=== PATIENT | male | born 1990 | race Caucasian/White ===

== ENCOUNTER 2018-09-13 17:40 | Emergency (ER) | payer MEDICAID ==
[2018-09-13 18:00] VITALS: BP 162/110
--- NOTE | 2018-09-13 19:16 | EDM.PDOC ---
ED HPI GENERAL MEDICAL PROBLEM - General Chief Complaint: Gastrointestinal Problem Stated Complaint: RECTAL BLEEDING Time Seen by Provider: 09/13/18 17:55 Source of Information: Reports: Patient History Limitations: Reports: No Limitations - History of Present Illness INITIAL COMMENTS - FREE TEXT/NARRATIVE: pt arrived stating that he has intermitent rectal bleeding. He had a fair amount of bleeding last nite but he is not bleeding today. He has a history of viomiting when he wakes up each day. He is not having severe pain in his abdoman. Pt states he does drink every day and usually has about 7 drinks daily. Onset: Gradual, Other ( This has been going on for awhile on and off. He did not go to work today. ) Duration: Hour(s): Location: Reports: Abdomen, Other (pt gives a history of very carious teeth. ) Associated Symptoms: Reports: Nausea/Vomiting, Other ( rectal bleeding. ) Right Abdominal Pain Score (Numeric/FACES): 6 - Related Data Allergies Allergy/AdvReac Type Severity Reaction Status Date / Time No Known Allergies Allergy Verified 09/13/18 18:05 Home Meds: Home Meds NK [No Known Home Meds] 04/30/15 [History] Past Medical History Other Cardiovascular History: tachycardia Other Respiratory History: pt feels wheezy at times and so he uses his girlfriends inhaler and pt feels it helps. Gastrointestinal History: Reports: Hemorrhoids, Other (See Below) Other Gastrointestinal History: internal hemorrhoids Neurological History: Reports: Migraines Psychiatric History: Reports: Addiction - Past Surgical History HEENT Surgical History: Reports: Other (See Below) Other HEENT Surgeries/Procedures: drained tonsils after tonscillitis. Social & Family History - Tobacco Use Smoking Status *Q: Light Tobacco Smoker Years of Tobacco use: 10 Packs/Tins Daily: 0.5 - Caffeine Use Caffeine Use: Reports: Energy Drinks Other Caffeine Use: 5 per day - Alcohol Use Days Per Week of Alcohol Use: 7 Number of Drinks Per Day: 10 Total Drinks Per Week: 70 - Recreational Drug Use Recreational Drug Use: Yes Recreational Drug Type: Reports: Marijuana/Hashish Recreational Drug Use Frequency: Weekly ED ROS GENERAL - Review of Systems Review Of Systems: See Below Constitutional: Reports: No Symptoms HEENT: Reports: Other (pt has multiple carrious teeth) Respiratory: Reports: No Symptoms Cardiovascular: Reports: No Symptoms Endocrine: Reports: No Symptoms GI/Abdominal: Reports: Black Stool, Bloody Stool, Other ( blood when he wipwes, This was last nite, none today. ) : Reports: No Symptoms Musculoskeletal: Reports: No Symptoms Skin: Reports: No Symptoms Neurological: Reports: No Symptoms Psychiatric: Reports: No Symptoms Hematologic/Lymphatic: Reports: No Symptoms ED EXAM, GI/ABD - Physical Exam Exam: See Below Text/Narrative:: pt arrived with a history of some black tarry stools for 1 day, He had bright red blood when he wiped his rectum last nite. He has some pain in the rt upper abdoman. He does drink on a regular basis. He does vomit each am. Exam Limited By: No Limitations General Appearance: Alert, No Apparent Distress Ears: Normal TMs Nose: Normal Inspection Throat/Mouth: Normal Inspection Head: Atraumatic Neck: Normal Inspection Respiratory/Chest: No Respiratory Distress Cardiovascular: Regular Rate, Rhythm GI/Abdominal Exam: Other (pt does not have sig tenderness present. ) (Male) Exam: Deferred Rectal (Males) Exam: Other ( rectal exam did not show obvious hemmoroids. The stool was greenish at this point and occult neg, ) Back Exam: Normal Inspection Extremities: Normal Inspection Neurological: Alert, Oriented, Normal Cognition Psychiatric: Anxious Course - Vital Signs Last Recorded V/S: Last Vital Signs Temp 35.9 C 09/13/18 18:03 Pulse 97 09/13/18 18:03 Resp 17 09/13/18 18:03 BP 162/110 H 09/13/18 18:03 Pulse Ox 98 09/13/18 18:03 - Orders/Labs/Meds Labs: Laboratory Tests 09/13/18 09/13/18 09/13/18 Range/Units 18:18 18:27 18:27 WBC 7.3 (4.5-11.0) K/uL RBC 5.40 (4.30-5.90) M/uL Hgb 16.8 H (12.0-15.0) g/dL Hct 49.8 (40.0-54.0) % MCV 92 (80-98) fL MCH 31 (27-31) pg MCHC 34 (32-36) % Plt Count 270 (150-400) K/uL Neut % (Auto) 55 (36-66) % Lymph % (Auto) 34 (24-44) % [place] % (Auto) 8 H (2-6) % Eos % (Auto) 2 (2-4) % Baso % (Auto) 1 (0-1) % PT (9.5-12.0) sec INR (0.80-1.20) APTT 27.5 (27.0-36.0) sec Sodium (140-148) mmol/L Potassium (3.6-5.2) mmol/L Chloride (100-108) mmol/L Carbon Dioxide (21-32) mmol/L Anion Gap (5.0-14.0) mmol/L BUN (7-18) mg/dL Creatinine (0.8-1.3) mg/dL Est Cr Clr Drug Dosing mL/min Estimated GFR (MDRD) (>60) Glucose (74-106) mg/dL Calcium (8.5-10.1) mg/dL Total Bilirubin (0.2-1.0) mg/dL AST (15-37) U/L ALT (12-78) U/L Alkaline Phosphatase (46-116) U/L C-Reactive Protein (0.0-0.3) mg/dL Total Protein (6.4-8.2) g/dL Albumin (3.4-5.0) g/dL Globulin (2.3-3.5) g/dL Albumin/Globulin Ratio (1.2-2.2) Urine Color Yellow Urine Appearance Clear Urine pH 6.0 (4.5-8.0) Ur Specific [place] 1.005 L (1.008-1.030) Urine Protein Negative (NEGATIVE) mg/dL Urine Glucose (UA) Normal (NEGATIVE) mg/dL Urine Ketones Negative (NEGATIVE) mg/dL Urine Occult Blood Negative (NEGATIVE) Urine Nitrite Negative (NEGAITVE) Urine Bilirubin Negative (NEGATIVE) Urine Urobilinogen Normal (NORMAL) mg/dL Ur Leukocyte Esterase Negative (NEGATIVE) Urine RBC Not seen (0-5) Urine WBC Not seen (0-5) Ur Epithelial Cells Not seen Amorphous Sediment Few Urine Bacteria Not seen Urine Mucus Not seen 09/13/18 09/13/18 09/13/18 Range/Units 18:27 18:27 18:55 WBC (4.5-11.0) K/uL RBC (4.30-5.90) M/uL Hgb (12.0-15.0) g/dL Hct (40.0-54.0) % MCV (80-98) fL MCH (27-31) pg MCHC (32-36) % Plt Count (150-400) K/uL Neut % (Auto) (36-66) % Lymph % (Auto) (24-44) % [place] % (Auto) (2-6) % Eos % (Auto) (2-4) % Baso % (Auto) (0-1) % PT 10.6 (9.5-12.0) sec INR 0.96 (0.80-1.20) APTT (27.0-36.0) sec Sodium 143 (140-148) mmol/L Potassium 3.6 (3.6-5.2) mmol/L Chloride 105 (100-108) mmol/L Carbon Dioxide 26 (21-32) mmol/L Anion Gap 12.3 (5.0-14.0) mmol/L BUN 14 (7-18) mg/dL Creatinine 1.1 (0.8-1.3) mg/dL Est Cr Clr Drug Dosing 108.39 mL/min Estimated GFR (MDRD) > 60 (>60) Glucose 108 H (74-106) mg/dL Calcium 9.1 (8.5-10.1) mg/dL Total Bilirubin 0.4 (0.2-1.0) mg/dL AST 28 (15-37) U/L ALT 53 (12-78) U/L Alkaline Phosphatase 91 (46-116) U/L C-Reactive Protein 0.17 (0.0-0.3) mg/dL Total Protein 8.0 (6.4-8.2) g/dL Albumin 3.8 (3.4-5.0) g/dL Globulin 4.2 H (2.3-3.5) g/dL Albumin/Globulin Ratio 0.9 L (1.2-2.2) Urine Color Urine Appearance Urine pH (4.5-8.0) Ur Specific [place] (1.008-1.030) Urine Protein (NEGATIVE) mg/dL Urine Glucose (UA) (NEGATIVE) mg/dL Urine Ketones (NEGATIVE) mg/dL Urine Occult Blood (NEGATIVE) Urine Nitrite (NEGAITVE) Urine Bilirubin (NEGATIVE) Urine Urobilinogen (NORMAL) mg/dL Ur Leukocyte Esterase (NEGATIVE) Urine RBC (0-5) Urine WBC (0-5) Ur Epithelial Cells Amorphous Sediment Urine Bacteria Urine Mucus - Re-Assessments/Exams Free Text/Narrative Re-Assessment/Exam: 09/13/18 19:24 pt had a normal platlet count, ptt and inr. His liver enzymes were not markedly elevated. stool for occult blood was neg. Departure - Departure Time of Disposition: 19:15 Disposition: Home, Self-Care 01 Condition: Fair Clinical Impression: Rectal bleeding, Vomiting, Carious teeth - Discharge Information Referrals: PCP,None [Primary Care Provider] - Forms: ED Department Discharge Care Plan Goals: appt at the [facility] to start work on the teeth, schedule for a gastro and colonoscopy, prilosec 20mg 2 tabs hs for 1 week then 1 tab hs.
== END 2018-09-13 19:44 | disposition home or self-care (01) ==
LOC: JP.ED 17:40
DX: K62.5 Hemorrhage of anus and rectum (principal); R11.2 Nausea with vomiting, unspecified; K02.9 Dental caries, unspecified; F17.210 Nicotine dependence, cigarettes, uncomplicated
CPT/HCPCS: 36415; 80053; 81001; 82272; 85025; 85610; 85730; 86140; 99284

== ENCOUNTER 2018-09-19 08:33 | Day surgery (SDC) | payer MEDICAID ==
[~2018-09-19 08:33] MED LIST: Midazolam 1 MG/ML 2 ML SDV ONE; Propofol 200 MG/20 ML SDV ONE; fentaNYL 100 MCG/2 ML SDV ONE
[2018-09-19] MEDS ORDERED: Lactated Ringers 1,000 ML IV SCH (08:45)
[2018-09-19] MEDS ORDERED: Sodium Chloride 0.9% 1,000 ML IV SCH (08:45)
[2018-09-19] MEDS ORDERED: Propofol 200 MG/20 ML SDV ONE ×3 (09:44→10:05)
[2018-09-19 11:14] VITALS: BP 159/89
--- NOTE | 2018-09-20 11:04 | OR ---
DATE OF PROCEDURE: 09/19/2018 PREOPERATIVE DIAGNOSES: 1. Vomiting. 2. Blood in stool. POSTOPERATIVE DIAGNOSES: 1. Vomiting. 2. Blood in stool. 3. Gastritis. 4. Gastroesophageal reflux disease. 5. Colonic diverticulosis. SURGEON: Maury Hernandez MD PROCEDURE: Esophagogastroduodenoscopy with antral biopsies for CLOtest sent for Pathology to look for Helicobacter pylori, biopsy of gastroesophageal junction, colonoscopy to the cecum. Surgeon: Maury Hernandez MD. ANESTHESIA: IV anesthesia with monitored anesthesia care. INDICATION: This 28-year-old white male is referred for upper and lower endoscopy because of frequent daily vomiting and also blood in the stool. He describes the blood as bright red. I counseled him for upper and lower endoscopy with possible biopsy and/or polypectomy including risks and alternatives, and gave his informed consent to proceed. DESCRIPTION OF PROCEDURE: The patient was placed in the left lateral decubitus position. IV anesthesia was administered by the Anesthesia Service. Time-out was held. The flexible video Olympus upper endoscope was passed through his mouth, down his esophagus, and into his stomach. The scope was easily passed through the pylorus into the duodenum reaching its third portion. The scope was then slowly withdrawn examining the mucosa throughout. The duodenal mucosa appeared unremarkable. The scope was brought up through the pylorus. There was red streaking and some erythema emanating from the antrum consistent with gastritis. We obtained biopsies for CLOtest sent tissue for Pathology to look for Helicobacter pylori. The scope was retroflexed with the most proximal stomach appearing unremarkable. The scope was straightened and brought up to the GE junction. This appeared irritated with gastric mucosal fingers going proximally up into the esophagus consistent with gastroesophageal reflux disease. We obtained multiple totalling at least six biopsies of the gastroesophageal junction. The scope was then brought up through the remainder of the esophagus , which otherwise appeared unremarkable and it was removed. Next a rectal exam was performed which was unremarkable. The flexible, fiberoptic Olympus colonoscope was past through his anus, up his rectum and out his colon all the way to the cecum. Enroute, we saw very few diverticula. There was no bleeding nor inflammation associated with them. The scope was then slowly withdrawn examining the mucosa through out. No additional mucosal abnormalities were seen. The scope was retroflexed in the rectum with the distal rectum appearing unremarkable. The scope was straightened and removed. He tolerated the procedure well. Maury Hernandez MD /[id number]
== END 2018-09-19 11:30 | disposition home or self-care (01) ==
LOC: JP.SDS 08:33
PROVIDERS: ATTEND Surgery
DX: K57.31 Diverticulosis of large intestine without perforation or abscess with bleeding (principal); K20.9 Esophagitis, unspecified; K29.71 Gastritis, unspecified, with bleeding; K21.9 Gastro-esophageal reflux disease without esophagitis; F17.200 Nicotine dependence, unspecified, uncomplicated
CPT/HCPCS: 43239; 45378; 87081; 88305; J2250; J2704; J3010; J7120